=== PATIENT | female | born 1935 | race Caucasian/White ===

== ENCOUNTER → 2016-12-09 | Outpatient (CLI) | payer OTHER ==
[~2016-12-09] MED LIST: LEVO250T23 PO; LEVO75TA PO; LOSA100T6 PO; LOSA50TA2 PO; SENN1TAB7 PO; SIMV20TA3 PO; TRIA1TAB2 PO; TYLENOL PM PO; WARF2TAB7 PO; WARF5TAB PO
== END | disposition home or self-care (01) ==
LOC: CFH 10:19
PROVIDERS: ATTEND Family Medicine
DX: Z12.31 Encounter for screening mammogram for malignant neoplasm of breast (principal)
CPT/HCPCS: G0202

== ENCOUNTER 2019-04-25 12:40 | Outpatient (CLI) | payer MEDICARE ==
[~2019-04-25 12:40] MED LIST changes: +LOSA100T14 PO; -LOSA100T6 PO; +SENN-177 PO; -SENN1TAB7 PO; -WARF2TAB7 PO; +WARF2TAB99 PO
== END 2019-04-25 23:59 | disposition home or self-care (01) ==
LOC: CFH 12:40
PROVIDERS: ATTEND Family Medicine
DX: Z12.31 Encounter for screening mammogram for malignant neoplasm of breast (principal); N64.89 Other specified disorders of breast
CPT/HCPCS: 77067

== ENCOUNTER → 2020-08-20 | Outpatient (CLI) | payer MEDICARE ==
[~2020-08-20] MED LIST changes: +SIMV20TA19 PO; -SIMV20TA3 PO; -WARF5TAB PO; +WARF5TAB2 PO
== END | disposition home or self-care (01) ==
LOC: CFH 11:45
PROVIDERS: ATTEND Family Medicine
DX: Z12.31 Encounter for screening mammogram for malignant neoplasm of breast (principal)
CPT/HCPCS: 77067